=== PATIENT | female | born 1995 ===

== ENCOUNTER 2023-05-20 13:31 | Outpatient (AMB) | payer OTHER, SELFPAY ==
[2023-05-20 13:42] VITALS: BP 108/68; PULSE 70; BMI 20.8
--- NOTE | 2023-05-20 13:42 | A.OFFVIS_ITS ---
Intake Vital Signs 05/20/23 13:42 Height 4 ft 11 in Weight 103 lb BMI 20.8 BP 108/68 Blood Pressure Location Rt brachial Position Sitting Pulse 70 Intake Visit Reasons: External Hemorrhoids Intake Note: Patient here for external hemorrhoids. Uses preparation H prn. C/o on off bleeding X5yrs. First noticed after childbirth. Casework Specialist Required: No Accompanied by: son Allergies No Known Allergies Allergy (Verified 05/20/23 13:44) HPI HPI Comments History of Present Illness Details Patient presents with approximate 5 year history of symptomatic hemorrhoids. They are swollen, painful, and occasionally bleed. She has had these since her from 5 years ago. He has no other GI issues or complaints. She tolerated diet. She has regular bowel habits. Patient denies any anal receptive practice. PFSH Family History (Updated 05/20/23 @ 13:45 by SIXTO Lovell) Mother Ovarian cancer Social History (Updated 05/20/23 @ 13:45 by SIXTO Lovell) Alcohol intake: current Alcohol intake frequency: holidays/special occasions only Alcohol type: hard liquor Patient Tobacco Use Status: Never used Tobacco Physical Exam Vital Signs: Last Vital Signs Pulse 70 05/20/23 13:42 BP 108/68 05/20/23 13:42 BMI result Body Mass Index 20.8 Chest Other: Chest breath sounds bilaterally, HS 1 in 2 GI Other: Abdomen soft, benign. Very large external hemorrhoids. Assessment & Plan Assessment & Plan (1) External hemorrhoid: Code(s): K64.4 - Residual hemorrhoidal skin tags Plan Risks, benefits, alternatives hemorrhoidectomy reviewed with the patient and included but not limited to bleeding, infection, recurrence, numbness, pain, scarring, fecal incontinence and the patient wishes to proceed. All questions were answered. Arrangements will be made for this. Patient will receive a mini bowel prep day prior. Coding Level of Care Code New Pt Level 4 (10174) Diagnoses External hemorrhoid K64.4
== END 2023-05-20 14:36 | disposition home or self-care (01) ==
PROVIDERS: PCP Internal Medicine; Referring Provider Internal Medicine; Visit Provider Surgery
DX: K64.4 Residual hemorrhoidal skin tags (principal)
CPT/HCPCS: 99204

== ENCOUNTER → 2023-05-20 13:31 | Outpatient (BNVA) | payer OTHER, SELFPAY | PROVIDERS: PCP Internal Medicine; Referring Provider Internal Medicine; Visit Provider Surgery | DX: K64.4 Residual hemorrhoidal skin tags (principal) | CPT/HCPCS: 99202 ==

== ENCOUNTER 2023-06-05 09:47 | Day surgery (SDC) | payer OTHER, SELFPAY ==
--- NOTE | 2023-06-04 08:57 | HO.ANESPROP2 ---
Documented by User: Diane Jackson NP 06/04/23 08:58 HPI - Anesthesia Eval Consult details Narrative: 27yo F for Hemorrhoidectomy,lithotomy, mini ligature PMFSH Active Problems Active Problems: All Active Problems (Updated 05/20/23 @ 13:55 by Russell Amos MD) External hemorrhoid (Acute) Family History Family History (Updated 05/20/23 @ 13:45 by SIXTO Lovell) Mother Ovarian cancer Social History Social History (Updated 05/20/23 @ 13:45 by SIXTO Lovell) Alcohol intake: current Alcohol intake frequency: holidays/special occasions only Alcohol type: hard liquor Patient Tobacco Use Status: Never used Tobacco Second Hand Smoke Exposure: No Use of substances other than those prescribed or required for medical reasons: Yes Substance Use Frequency: Daily Are you DNR?: No Advance Directives: No Advance Directives Information Provided: Yes Advance Directives on File: No Meds Allergies Allergy/AdvReac Type Severity Reaction Status Date / Time No Known Allergies Allergy Verified 05/20/23 13:44 Home Medications Medication Instructions Recorded Confirmed Last Taken Type acetaminophen 325 mg capsule 325 mg PO QID PRN 05/20/23 Unknown History (Tylenol) Exam Exam Date and Time: June 04, 2023 0857 Assessment and Plan Assessment Anesthesia Assessment: Chart Reviewed Documented by User: Brigido Dumont MD 06/05/23 11:38 PMFSH Family History Family History (Updated 05/20/23 @ 13:45 by SIXTO Lovell) Mother Ovarian cancer Family history of problems with anesthesia: No Surgical History History of Problems with Anesthesia: No Social History Social History (Updated 05/20/23 @ 13:45 by SIXTO Lovell) Alcohol intake: current Alcohol intake frequency: holidays/special occasions only Alcohol type: hard liquor Patient Tobacco Use Status: Never used Tobacco Second Hand Smoke Exposure: No Use of substances other than those prescribed or required for medical reasons: Yes Substance Use Frequency: Daily Are you DNR?: No Advance Directives: No Advance Directives Information Provided: Yes Advance Directives on File: No Meds Allergies Allergy/AdvReac Type Severity Reaction Status Date / Time No Known Allergies Allergy Verified 05/20/23 13:44 Home Medications Medication Instructions Recorded Confirmed Last Taken Type acetaminophen 325 mg capsule 325 mg PO QID PRN 05/20/23 Unknown History (Tylenol) Exam Airway Mallampati Class: II TM Dist: >3cm Neck ROM: Full Loose/Missing/Broken Teeth: No Heart: rrr Lungs: clear Assessment and Plan Final Anesthetic Review Family History of Problems with Anesthesia: No History of Problems with Anesthesia: No NPO: Yes ASA Class: I Final Preanesthetic Review: No Changes in Pt Med Stat, Meds/Allgs Chart Reviewed, Consent Obtained/Reviewed and Anes Risks/Benef Reviewed Patient Risk: Low Procedure Risk: Low Anesthetic Plan Anesthetic Plan: MAC: Disposition: Standard PACU
--- NOTE | 2023-06-04 09:14 | MHC.SHP ---
Pre-Procedural Eval Section A Date of Service: 06/04/23 The patient is an INPATIENT: No Changes since office visit: No Cold of Flu in the past 2 weeks, No New Medical Problems, No Changes in Medication and No Patient answered all questions The History & Physical has been completed within 30 days and I have reviewed it.: Yes Section B Chief Complaint: Residual hemorrhoidal skin tags Allergies: Allergies Allergy/AdvReac Type Severity Reaction Status Date / Time No Known Allergies Allergy Verified 05/20/23 13:44 Plan I have reviewed the history and physical and performed a pertinent physical examination on my patient. No changes have occurred unless specified. Time Spent With Patient Time: Total time managing care of this patient today ____ minutes.
[2023-06-05 09:59] VITALS: BMI 20.8
[2023-06-05 10:11] VITALS: BP 113/63; PULSE 86; RESP 16; TEMP 36.5; O2SAT 99
[2023-06-05 10:13] LABS: UPreg QC Valid YES; Urine Pregnancy NEGATIVE (NEGATIVE)
[2023-06-05] MEDS: Lactated Ringers 1,000 ML 100 ML IVCONT (10:21)
--- NOTE | 2023-06-05 12:25 | W.PM.OPN ---
Operative Note Operative Note Date of Service: 06/05/23 Narrative: Preoperative diagnosis: [] Symptomatic internal and external hemorrhoids Postop diagnosis: [] Same Procedure [] hemorrhoidectomy x3 Surgeon: [] Dandre [employer] Honing Machine Operator: [] Type of Anesthesia: [] MAC Indication for surgery: [] Very large internal and external hemorrhoids at 3 , 7 and 11 o'clock position lithotomy, all uneventfully excised. . EBL minimal Findings: [] Patient brought to the operating room, placed on operative table in supine position, after adequate level of MAC anesthesia was induced, patient underwent the 1% lidocaine/0.5% Marcaine infiltration of the hemorrhoids. Rectal exam demonstrated no other pathology aside from the hemorrhoids. Each area as noted in the findings, was respectively grasped with a grasper, and double fire mini ligature device was used to transect hemorrhoids at their base. Specimens sent to pathology. Wounds were irrigated, and secured for hemostasis. Bupivacaine impregnated Gelfoam plug was placed followed by sterile dressing. Sponge, needle, and instrument counts reported correct. Patient tolerated the procedure well and emerged from anesthesia in stable condition. EBL minimum
[2023-06-05 12:35] VITALS: BP 97/47; PULSE 61; RESP 10; TEMP 37; O2SAT 100
[2023-06-05 12:50] VITALS: BP 127/75; PULSE 73; RESP 15; O2SAT 99
[2023-06-05 13:05] VITALS: BP 132/85; PULSE 57; RESP 16; TEMP 36.7; O2SAT 100
== END 2023-06-05 13:35 | disposition home or self-care (01) ==
PROVIDERS: Nurse Practitioner; PCP Internal Medicine; Visit Provider Surgery
PROC: (CPT 46946; principal; 2023-06-05 11:30)
DX: K64.8 Other hemorrhoids (principal); K64.4 Residual hemorrhoidal skin tags
CPT/HCPCS: 46946; 81025; 88304; J0690; J2250; J3010

== ENCOUNTER → 2023-06-05 09:47 | Outpatient (BNV) | payer OTHER, SELFPAY | PROVIDERS: PCP Internal Medicine; Visit Provider Surgery | DX: K64.8 Other hemorrhoids (principal) | CPT/HCPCS: 46260 ==

== ENCOUNTER 2023-06-18 13:50 | Outpatient (REF) | payer OTHER, SELFPAY ==
[2023-06-18 14:18] LABS: MANUAL DIFF FLAG NO
[2023-06-18 14:45] LABS: Basophils Absolute Auto 0.1 X10*3/uL (0.0-0.2); Basophils Percent Auto 0.4 % (0-2); Eosinophils Absolute Auto 0.2 X10*3/uL (0.0-0.4); Eosinophils Percent Auto 1.8 % (0-4); Hematocrit 29.1 % (37.0-47.0); Hemoglobin 9.6 g/dl (12.0-16.0); Imm Gran Abs Auto 0.04 X10*3/uL (0.00-0.03); Imm Gran Pct Auto 0.3 % (0.0-0.4); Lymphocytes Absolute Auto 2.1 X10*3/uL (1.2-4.9); Lymphocytes Percent Auto 17.9 % (20-40); Mean Corpuscular Hemoglobin 28.7 pg (27.0-33.0); Mean Corpuscular Volume 86.9 fL (80.0-98.0); Mean Platelet Volume 9.8 fL (9.4-12.3); Monocytes Absolute Auto 0.7 X10*3/uL (0.1-1.2); Monocytes Percent Auto 5.8 % (2-11); Neutrophils Absolute Auto 8.8 x10*3/uL (2.0-8.3); Neutrophils Percent Auto 73.8 % (45-73); Platelet Count 449 X10*3/uL (160-400); Red Blood Count 3.35 X10*6/uL (4.20-5.50); Red Cell Distribution Width 11.7 % (11.0-16.0)
[2023-06-18 15:32] LABS: Thyroid Stimulating Hormone 1.54 uIU/mL (0.32-4.0)
== END 2023-06-18 13:51 | disposition home or self-care (01) ==
LOC: HO.LAB 13:50
PROVIDERS: Absent Provider Internal Medicine; PCP Internal Medicine; Visit Provider Surgery
DX: K62.5 Hemorrhage of anus and rectum (principal); K64.8 Other hemorrhoids; K64.4 Residual hemorrhoidal skin tags; Z09 Encounter for follow-up examination after completed treatment for conditions other than malignant neoplasm
CPT/HCPCS: 36415; 84443; 85025

== ENCOUNTER 2023-06-18 13:50 | Outpatient (AMB) | payer OTHER, SELFPAY ==
--- NOTE | 2023-06-18 13:51 | MHC.OFFVIS ---
Intake Vital Signs 06/18/23 13:58 Weight 100 lb BP 99/58 L Blood Pressure Location Rt brachial Position Sitting Pulse 74 Intake Visit Reasons: S/P hemorrhoidectomy Intake Note: This patient presents for a post-op assessment status post hemorrhoidectomy. Patient c/o; reports minimal rectal bleeding, reports using stool softeners to help facilitate bowel movements. Senior Statistical Programmer Required: No Accompanied by: Self / Same As Patient Allergies No Known Allergies Allergy (Verified 06/18/23 14:01) HPI HPI Comments History of Present Illness Details Postop status post hemorrhoidectomy. All things considered, patient is doing very well. Her incisional pain is markedly decreased. She has time diet. Having normal bowel habits. She is increasing her activity level. [facility] Surgical History History of hemorrhoidectomy (~06/05/23) Family History Mother Ovarian cancer Social History Alcohol intake: current Alcohol intake frequency: holidays/special occasions only Alcohol type: hard liquor Patient Tobacco Use Status: Never used Tobacco Second Hand Smoke Exposure: No Physical Exam Vital Signs: Last Vital Signs Pulse 74 06/18/23 13:58 BP 99/58 L 06/18/23 13:58 GI Other: Anorectal wounds healing uneventfully. Assessment & Plan Assessment & Plan (1) External hemorrhoid: Code(s): K64.4 - Residual hemorrhoidal skin tags Plan Patient has been given local wound instructions, and will follow-up p.r.n. Coding Level of Care Code Global (74168) Diagnoses External hemorrhoid K64.4
[2023-06-18 13:58] VITALS: BP 99/58; PULSE 74
== END 2023-06-18 14:04 | disposition home or self-care (01) ==
PROVIDERS: PCP Internal Medicine; Visit Provider Surgery
DX: K64.4 Residual hemorrhoidal skin tags (principal)
CPT/HCPCS: 99024

== ENCOUNTER 2023-07-09 14:00 | Outpatient (REF) | payer OTHER, SELFPAY ==
[2023-07-11 13:28] LABS: Rubella IgG Antibody 3.26 Index
[2023-07-12 00:48] LABS: TS Negative Control Passed; TS Panel A 2; TS Panel B 0; TS Positive Control Passed; TSpotTB Negative (Negative)
== END 2023-07-09 14:01 | disposition home or self-care (01) ==
LOC: HO.LAB 14:00
PROVIDERS: PCP Internal Medicine; Visit Provider Internal Medicine
DX: Z01.84 Encounter for antibody response examination (principal); D50.8 Other iron deficiency anemias; Z11.1 Encounter for screening for respiratory tuberculosis
CPT/HCPCS: 36415; 86481; 86735; 86762; 86765; 86787

== ENCOUNTER 2023-10-07 15:06 | Outpatient (REF) | payer OTHER, SELFPAY ==
[2023-10-07 15:16] LABS: MANUAL DIFF FLAG NO
[2023-10-07 15:39] LABS: Basophils Percent Auto 0.6 % (0-2); Eosinophils Absolute Auto 0.7 X10*3/uL (0.0-0.4); Eosinophils Percent Auto 9.2 % (0-4); Hematocrit 40.4 % (37.0-47.0); Hemoglobin 13.3 g/dl (12.0-16.0); Imm Gran Abs Auto 0.01 X10*3/uL (0.00-0.03); Imm Gran Pct Auto 0.1 % (0.0-0.4); Lymphocytes Absolute Auto 2.4 X10*3/uL (1.2-4.9); Lymphocytes Percent Auto 33.5 % (20-40); Mean Corpuscular HGB Conc 32.9 g/dl (31.0-35.0); Mean Corpuscular Hemoglobin 27.9 pg (27.0-33.0); Mean Corpuscular Volume 84.7 fL (80.0-98.0); Mean Platelet Volume 10.6 fL (9.4-12.3); Monocytes Absolute Auto 0.6 X10*3/uL (0.1-1.2); Monocytes Percent Auto 7.7 % (2-11); Neutrophils Absolute Auto 3.5 x10*3/uL (2.0-8.3); Neutrophils Percent Auto 48.9 % (45-73); Platelet Count 243 X10*3/uL (160-400); Red Blood Count 4.77 X10*6/uL (4.20-5.50); Red Cell Distribution Width 12.5 % (11.0-16.0); White Blood Count 7.2 X10*3/uL (4.8-10.8)
[2023-10-07 16:23] LABS: Ferritin 35 ng/mL (10-122)
== END 2023-10-07 15:07 | disposition home or self-care (01) ==
LOC: HO.LAB 15:06
PROVIDERS: PCP Internal Medicine; Visit Provider Internal Medicine
DX: D50.8 Other iron deficiency anemias (principal)
CPT/HCPCS: 36415; 82728; 85025

== ENCOUNTER 2024-04-07 15:29 | Outpatient (REF) | payer OTHER, SELFPAY ==
[2024-04-07 15:39] LABS: MANUAL DIFF FLAG NO
[2024-04-07 16:14] LABS: Basophils Absolute Auto 0.1 X10*3/uL (0.0-0.2); Basophils Percent Auto 0.6 % (0-2); Eosinophils Absolute Auto 0.8 X10*3/uL (0.0-0.4); Eosinophils Percent Auto 10.1 % (0-4); Hematocrit 37.6 % (37.0-47.0); Hemoglobin 12.6 g/dl (12.0-16.0); Imm Gran Abs Auto 0.02 X10*3/uL (0.00-0.03); Imm Gran Pct Auto 0.2 % (0.0-0.4); Lymphocytes Absolute Auto 3.1 X10*3/uL (1.2-4.9); Lymphocytes Percent Auto 38.4 % (20-40); Mean Corpuscular HGB Conc 33.5 g/dl (31.0-35.0); Mean Corpuscular Hemoglobin 29.2 pg (27.0-33.0); Mean Corpuscular Volume 87.2 fL (80.0-98.0); Mean Platelet Volume 11.1 fL (9.4-12.3); Monocytes Absolute Auto 0.5 X10*3/uL (0.1-1.2); Monocytes Percent Auto 6.4 % (2-11); Neutrophils Absolute Auto 3.6 x10*3/uL (2.0-8.3); Neutrophils Percent Auto 44.3 % (45-73); Platelet Count 254 X10*3/uL (160-400); Red Blood Count 4.31 X10*6/uL (4.20-5.50); Red Cell Distribution Width 11.9 % (11.0-16.0); White Blood Count 8.1 X10*3/uL (4.8-10.8)
[2024-04-07 16:59] LABS: Ferritin 37 ng/mL (10-122)
== END 2024-04-07 15:30 | disposition home or self-care (01) ==
LOC: HO.LAB 15:29
PROVIDERS: PCP Internal Medicine; Visit Provider Internal Medicine
DX: D50.8 Other iron deficiency anemias (principal)
CPT/HCPCS: 36415; 82728; 85025